=== PATIENT | male | born 1940 | race Caucasian/White ===

== ENCOUNTER 2020-03-31 09:03 | Inpatient (IN) ==
[2020-03-31] MEDS ORDERED: 0.9 % Sodium Chloride 1,000 ML IVC ONE (09:15)
[2020-03-31] MEDS ORDERED: Isovue-370 500 ML BOTTLE IVP ONE (09:15)
[2020-03-31] MEDS ORDERED: cefTRIAXone 1,000 MG in Water for inj. (sterile) 10 ML IVP ONE (09:16)
[2020-03-31] MEDS ORDERED: Azithromycin 500 MG in 0.9 % Sodium Chloride 250 ML IVPB ONE (09:17)
[2020-03-31 09:50] LABS: Basophils % 0.3 %; Hemoglobin 10.6 g/dL (12.9-16.9); Immature Granulocytes % 1.7 % (0-4); Lymphocytes # 0.3 K/mcL (0.6-4.6); Lymphocytes % 7.6 %; Mean Corpuscular HGB Conc 28.6 g/dL (31.6-35.5); Mean Corpuscular Hemoglobin 26.1 pg (28.0-33.3); Mean Corpuscular Volume 91.1 fL (83.0-100.0); Mean Platelet Volume 11.3 fL (9.4-12.4); Monocytes # 1.1 K/mcL (0.0-1.3); Neutrophils # 2.1 K/mcL (1.6-8.9); Platelet Count 216 K/mcL (140-400); Red Blood Count 4.06 M/mcL (4.19-5.50); Red Cell Distribution Width 15.2 % (11.5-14.5); Segmented Neutrophils % 60.4 %; White Blood Count 3.5 K/mcL (4.3-11.1)
[2020-03-31 09:51] LABS: VBG HCO3 10 mEq/L (21-27); VBG PCO2 32 mmHg (41-51); VBG PH 7.12 pH Units (7.32-7.42); VBG PO2 71 mmHg (25-50)
[2020-03-31 10:19] LABS: Hypochromasia Present (Not Present); Large Platelets Present (Not Present); Platelet Estimate Normal (Normal)
[2020-03-31 12:10] LABS: Bilirubin,Direct 0.1 mg/dL (0.0-0.2); Bilirubin,Indirect 0.2 mg/dL (0.0-1.0); Bilirubin,Total 0.3 mg/dL (0.3-1.0); Calcium 8.3 mg/dL (8.6-10.3)
[2020-03-31 12:10] LABS: Bilirubin,Urine Negative (Negative); Blood,Urine Negative (Negative); Clarity,Urine Clear (Clear); Color,Urine Light-Yellow (Yellow); Glucose,Urine (UA) >=1000 mg/dL (Normal); Ketones,Urine 60 mg/dL (Negative); Leukocyte Esterase,Urine Negative (Negative); Mucus,Urine Few per lpf (None-Few); Nitrite,Urine Negative (Negative); PH,Urine 5.5 pH Units (5.0-8.0); Protein,Urine 70 mg/dL (Neg-Trace); RBC,Urine 0-3 per hpf (0-3); Specific Gravity,Urine 1.017 (1.010-1.025); Urobilinogen,Urine Normal (Normal); WBC,Urine 0-3 per hpf (0-3)
[2020-03-31] MEDS ORDERED: Ringers Solution, Lactated 1,000 ML IVC SCH (12:15)
[2020-03-31] MEDS: Insulin Human Regular 100 UNIT in 0.9 % Sodium Chloride 100 ML IVC SCH ×3 (12:41→21:48)
[2020-03-31] MEDS ORDERED: *HR* Adenosine 6 MG/2 ML VIAL IVP ONE (14:14)
[2020-03-31] MEDS ORDERED: Insulin Regular, Human 100 UNIT/ML IV PRN (14:20)
[2020-03-31] MEDS ORDERED: Acetaminophen 325 MG TABLET PO PRN (14:20)
[2020-03-31] MEDS ORDERED: D5% in 0.45% NACL 1,000 ML IVC PRN (14:20)
[2020-03-31] MEDS ORDERED: *HR* Dextrose 50 % in Water (Vial) 50 ML VIAL IVP PRN (14:20)
[2020-03-31] MEDS ORDERED: *HR* Promethazine 25 MG/ML VIAL IVP PRN (14:20)
[2020-03-31] MEDS ORDERED: 0.45 % Sodium Chloride w/KCl 20 MEQ/1,000 ML MLS IVC SCH (14:30)
[2020-03-31] MEDS ORDERED: cefTRIAXone 2,000 MG in Water for inj. (sterile) 20 ML IVP SCH (15:00)
[2020-03-31] MEDS ORDERED: Azithromycin 500 MG in 0.9 % Sodium Chloride 250 ML IVPB SCH (15:00)
[2020-03-31 16:05] LABS: Calcium 8.3 mg/dL (8.6-10.3); Potassium 4.5 mEq/L (3.5-5.1)
[2020-03-31] MEDS: 0.45 % Sodium Chloride w/KCl 20 MEQ/1,000 ML MLS IVC SCH ×2 (16:42→20:28)
[2020-03-31 20:17] LABS: ABG Base Excess -3 mEq/L (-2 to 3); ABG HCO3 24 mEq/L (21-27); ABG Oxygen Saturation 89 % (95-98); ABG PCO2 52 mmHg (35-45); ABG PH 7.28 pH Units (7.32-7.45); ABG PO2 64 mmHg (85-104); ABG TCO2 26 mEq/L (20-26); Blood Gas Modality S
[2020-03-31] MEDS: *HR* Heparin 5,000 UNIT/ML VIAL SQ SCH (20:24)
[2020-03-31 20:37] LABS: Calcium 7.8 mg/dL (8.6-10.3); Potassium 4.2 mEq/L (3.5-5.1)
[2020-03-31] MEDS: D5% in 0.45% NACL w KCl 20 MEQ/1,000 ML MLS IVC PRN (21:46)
[2020-04-01] MEDS ORDERED: *HR* Metoprolol 5 MG/5 ML VIAL IVP ONE ×2 (00:23→09:09)
[2020-04-01] MEDS: Insulin Human Regular 100 UNIT in 0.9 % Sodium Chloride 100 ML IVC SCH (01:18)
[2020-04-01] MEDS: D5% in 0.45% NACL w KCl 20 MEQ/1,000 ML MLS IVC PRN (02:00)
[2020-04-01 02:04] LABS: VBG HCO3 25 mEq/L (21-27); VBG PCO2 54 mmHg (41-51); VBG PH 7.28 pH Units (7.32-7.42); VBG PO2 141 mmHg (25-50)
[2020-04-01 02:05] LABS: Hematocrit 29.4 % (37.5-50.1); Mean Corpuscular Hemoglobin 25.7 pg (28.0-33.3); Mean Platelet Volume 10.2 fL (9.4-12.4); Platelet Count 138 K/mcL (140-400); Red Blood Count 3.54 M/mcL (4.19-5.50); Red Cell Distribution Width 14.6 % (11.5-14.5); White Blood Count 2.3 K/mcL (4.3-11.1)
[2020-04-01 02:10] LABS: Hemoglobin 9.1 g/dL (12.9-16.9); Mean Corpuscular Volume 83.1 fL (83.0-100.0)
[2020-04-01 02:27] LABS: Calcium 7.9 mg/dL (8.6-10.3); Magnesium 1.5 mg/dL (1.6-2.6); Potassium 4.2 mEq/L (3.5-5.1)
[2020-04-01 02:29] LABS: Troponin I 0.17 ng/mL (< 0.04)
[2020-04-01] MEDS: Magic Mouthwash 10 ML UD Cup PO SCH ×2 (06:09→13:41)
[2020-04-01] MEDS: *HR* Heparin 5,000 UNIT/ML VIAL SQ SCH (06:09)
[2020-04-01] MEDS ORDERED: *HR* Dextrose 50 % in Water (Vial) 50 ML VIAL IVP PRN (06:32)
[2020-04-01] MEDS ORDERED: Insulin DETEMIR 100 UNIT/ML X5UNITS SQ SCH (06:32)
[2020-04-01] MEDS ORDERED: D5% in Water 1,000 ML IVC PRN (06:32)
[2020-04-01] MEDS ORDERED: Dextrose Gel 15 GM/37.5 ML TUBE PO PRN ×2 (06:32)
[2020-04-01] MEDS ORDERED: *HR* LORazepam 2 MG/ML VIAL IVP ONE (08:40)
[2020-04-01] MEDS ORDERED: *HR* LORazepam 2 MG/ML VIAL IVP PRN (08:42)
[2020-04-01] MEDS ORDERED: cefTRIAXone 2,000 MG in Water for inj. (sterile) 20 ML IVP SCH (09:00)
[2020-04-01] MEDS ORDERED: Azithromycin 500 MG in 0.9 % Sodium Chloride 250 ML IVPB SCH (09:00)
[2020-04-01] MEDS ORDERED: *HR* Metoprolol 5 MG/5 ML VIAL IVP PRN (10:58)
[2020-04-01] MEDS ORDERED: 0.9 % Sodium Chloride 500 ML IVC ONE (11:00)
[2020-04-01] MEDS ORDERED: Insulin LISPRO 300 UNITS/3 ML VIAL SQ SCH (12:00)
[2020-04-01 12:31] VITALS: BP 106/56
[2020-04-01 12:37] LABS: VBG HCO3 21 mEq/L (21-27); VBG PCO2 47 mmHg (41-51); VBG PH 7.26 pH Units (7.32-7.42); VBG PO2 101 mmHg (25-50)
[2020-04-01 12:51] LABS: Calcium 7.7 mg/dL (8.6-10.3); Potassium 4.9 mEq/L (3.5-5.1)
== END 2020-04-01 13:36 | disposition hospice, inpatient (51) | DRG 871 ==
LOC: EMEROOARM 09:03 → 2NNU 09:03 → SUATTDRO 12:42 → 2NNU 14:05
PROVIDERS: ADMIT Internal Medicine; ATTEND Internal Medicine

== ENCOUNTER 2020-04-01 13:35 | Inpatient (IN) ==
[2020-04-01] MEDS ORDERED: Bisacodyl 10 MG RECTAL SUPPOSITORY RC PRN (13:46)
[2020-04-01] MEDS ORDERED: Haloperidol Oral Conc 10 MG/5 ML UDC PO PRN (13:46)
[2020-04-01] MEDS ORDERED: Ipratropium/Albuterol Neb 3 ML IH PRN (13:46)
[2020-04-01] MEDS ORDERED: Acetaminophen 650 MG RECTAL SUPP RC PRN (13:50)
[2020-04-01] MEDS ORDERED: D5% in Water 1,000 ML IVC PRN (13:52)
[2020-04-01] MEDS ORDERED: *HR* Dextrose 50 % in Water (Vial) 50 ML VIAL IVP PRN (13:52)
[2020-04-01] MEDS ORDERED: Dextrose Gel 15 GM/37.5 ML TUBE PO PRN ×2 (13:52)
[2020-04-01] MEDS ORDERED: *HR* FentaNYL (PF) 100 MCG/2 ML VIAL IVP PRN (13:56)
[2020-04-01] MEDS ORDERED: Levalbuterol Neb 1.25 MG/3 ML IH PRN (14:03)
[2020-04-01] MEDS ORDERED: Furosemide 20 MG TABLET PO PRN (14:05)
[2020-04-01] MEDS: Magic Mouthwash 10 ML UD Cup PO SCH (15:00)
[2020-04-01] MEDS: *HR* LORazepam Oral Conc 2 MG/ML PO SCH ×2 (18:00→22:58)
[2020-04-01] MEDS ORDERED: *HR* LORazepam Oral Conc 2 MG/ML PO SCH (18:00)
[2020-04-01] MEDS: Insulin LISPRO 300 UNITS/3 ML VIAL SQ SCH (18:01)
[2020-04-01] MEDS: Insulin DETEMIR 100 UNIT/ML X5UNITS SQ SCH (22:59)
[2020-04-02] MEDS: Insulin LISPRO 300 UNITS/3 ML VIAL SQ SCH ×4 (01:59→17:59)
[2020-04-02] MEDS: *HR* LORazepam Oral Conc 2 MG/ML PO SCH ×2 (06:45→13:59)
[2020-04-02] MEDS: Magic Mouthwash 10 ML UD Cup PO SCH ×3 (10:03→16:58)
[2020-04-02] MEDS: *HR* LORazepam Oral Conc 2 MG/ML PO PRN ×2 (10:09→20:24)
[2020-04-02] MEDS ORDERED: *HR* LORazepam Oral Conc 2 MG/ML PO SCH (16:00)
[2020-04-02] MEDS ORDERED: Scopolamine Patch 1.5 MG PATCH.TD72 TD SCH (17:15)
[2020-04-02] MEDS: Atropine Sulfate 1% 40 DROP/2 ML BOTTLE SL PRN ×2 (18:52→20:27)
[2020-04-02 19:47] VITALS: BP 100/55
[2020-04-02] MEDS: Insulin DETEMIR 100 UNIT/ML X5UNITS SQ SCH (20:24)
== END 2020-04-02 22:48 | disposition expired | DRG 951 ==
LOC: 2ANU 13:42
PROVIDERS: ADMIT Internal Medicine Hospice and Palliative Medicine; ATTEND Internal Medicine Hospice and Palliative Medicine